=== PATIENT | female | born 1950 | race Caucasian/White ===

== ENCOUNTER 2018-09-21 09:17 | Outpatient (CLI) | payer MEDICARE, OTHER ==
[~2018-09-21] VITALS: Ht 160 cm; Wt 63.4 kg
[2018-09-21] VITALS (17 sets, daily range): BP systolic 107–150; BP diastolic 55–84; PULSE 57–84
[2018-09-21] MEDS ORDERED: LEVOXYL0.075 MG PO (09:37)
[2018-09-21] MEDS ORDERED: SYNTHROID0.088 MG/T PO (09:38)
[2018-09-21] MEDS ORDERED: ZYRTEC 10MG10 MG PO (09:39)
[2018-09-21] MEDS ORDERED: CRANBERRY 100 M1 SGL PO (09:39)
[2018-09-21] MEDS ORDERED: CALCIUM 600 PLU1 TAB PO (09:40)
== END 2018-09-21 16:15 | disposition home or self-care (01) ==
LOC: COL.RAD 09:17
DX: C50.411 Malignant neoplasm of upper-outer quadrant of right female breast (principal); J93.9 Pneumothorax, unspecified; Z98.82 Breast implant status
CPT/HCPCS: 32107